=== PATIENT | female | born 1990 | race Caucasian/White ===

== ENCOUNTER 2017-06-05 00:33 | Outpatient (CLI) | payer OTHER ==
[~2017-06-05] VITALS: Ht 157.5 cm; Wt 64.0 kg
[2017-06-05 01:00] VITALS: BP 118/60
== END 2017-06-05 02:00 | disposition home or self-care (01) ==
LOC: LDOP 00:33
PROVIDERS: ATTEND Obstetrics & Gynecology
DX: O46.93 Antepartum hemorrhage, unspecified, third trimester (principal); Z3A.30 30 weeks gestation of pregnancy
CPT/HCPCS: 59025; 81003; 87086; 99201; G0463

== ENCOUNTER 2017-08-05 06:57 | Inpatient (IN) | payer OTHER ==
[~2017-08-05] VITALS: Ht 157.5 cm; Wt 74.0 kg
[2017-08-05] MEDS ORDERED: OXYTOCIN 30U/ 0.9% NaCL 500ML 500 ML IV ONE (07:20)
[2017-08-05] MEDS ORDERED: PLEASE ENTER ALLERGIES MC SCH ×2 (07:30)
[2017-08-05] MEDS ORDERED: PLEASE ENTER HEIGHT AND WEIGHT MC SCH (07:30)
[2017-08-05] MEDS ORDERED: LIDOCAINE 1%, 20ML ONE (07:38)
[2017-08-05] MEDS ORDERED: OXYTOCIN 30U/ 0.9% NaCL 500ML 500 ML ONE ×2 (07:39→10:47)
[2017-08-05] MEDS ORDERED: MISOPROSTOL 200 MCG TABLET ONE (07:39)
[2017-08-05 07:56] LABS: HEMATOCRIT 35.7 % (34.6-47.8); HEMOGLOBIN 11.8 g/dL (11.7-16.4); WHITE BLOOD COUNT 9.9 x10^3/uL (3.4-10)
[2017-08-05 07:59] VITALS: BP 140/71
[2017-08-05] MEDS ORDERED: NEWBORN KIT ONE (08:10)
[2017-08-05] MEDS ORDERED: ONDANSETRON 2MG/ML, 2ML IVPush PRN (08:30)
[2017-08-05] MEDS ORDERED: FENTANYL PF 100 MCG/2ML IV PRN (08:30)
[2017-08-05] MEDS ORDERED: SODIUM CHLORIDE FLUSH 10ML SYR IVF PRN (08:30)
[2017-08-05] MEDS ORDERED: D5%-LACTATED RINGERS 1,000 ML IV SCH (08:30)
[2017-08-05] MEDS ORDERED: LACTATED RINGERS 1,000 ML IV SCH (08:30)
[2017-08-05] MEDS ORDERED: TERBUTALINE 1 MG/ML, 1ML IVPush PRN (08:30)
[2017-08-05] MEDS ORDERED: PREN-3 PO (09:10)
[2017-08-05] MEDS ORDERED: CARBOPROST TROMETHAMINE 250 MCG/ML, 1ML IM ONE ×2 (10:00→17:00)
[2017-08-05] MEDS ORDERED: MISOPROSTOL 200 MCG TABLET PR ONE (10:00)
[2017-08-05] MEDS: OXYTOCIN 30U/ 0.9% NaCL 500ML 500 ML IV SCH ×11 (10:23→23:27)
[2017-08-05] MEDS ORDERED: METHYLERGONOVINE 0.2 MG/ML IM ONE (10:37)
[2017-08-05] MEDS ORDERED: FENTANYL PF 100 MCG/2ML ONE ×2 (10:39→10:56)
[2017-08-05] MEDS: FENTANYL PF 100 MCG/2ML IVPush PRN ×2 (10:41→10:58)
[2017-08-05] MEDS ORDERED: DIPHENOXYLATE/ATROPINE TABLET PO PRN (12:00)
[2017-08-05] MEDS ORDERED: OXYcodone IR 5MG TABLET PO PRN (12:00)
[2017-08-05] MEDS: PRENATAL VIT/IRON/FA 1 EACH TABLET PO SCH (12:00)
[2017-08-05] MEDS ORDERED: METHYLERGONOVINE 0.2 MG/ML IM PRN (12:00)
[2017-08-05] MEDS ORDERED: DOCUSATE 100 MG CAPSULE PO PRN (12:00)
[2017-08-05] MEDS ORDERED: OXYcodone/APAP 5/325MG TABLET PO PRN (12:00)
[2017-08-05] MEDS ORDERED: MISOPROSTOL 200 MCG TABLET PR PRN (12:00)
[2017-08-05] MEDS ORDERED: ONDANSETRON 2MG/ML, 2ML IV PRN (12:00)
[2017-08-05] MEDS ORDERED: IBUPROFEN 600 MG TABLET ONE (12:01)
[2017-08-05 12:45] LABS: HEMATOCRIT 31.5 % (34.6-47.8); HEMOGLOBIN 10.5 g/dL (11.7-16.4); WHITE BLOOD COUNT 17.2 x10^3/uL (3.4-10)
[2017-08-05] MEDS: IBUPROFEN 600 MG TABLET PO PRN ×2 (12:47→19:20)
[2017-08-05 13:12] LABS: HIV 1&2 ANTIBODY SCREEN Nonreactive (Nonreactive); HIV-1 p24 ANTIGEN Nonreactive (Nonreactive)
[2017-08-05 13:30] VITALS: BP 110/71
[2017-08-05 16:07] VITALS: BP 125/73
[2017-08-05 16:42] LABS: HEMATOCRIT 29.8 % (34.6-47.8); HEMOGLOBIN 9.9 g/dL (11.7-16.4); WHITE BLOOD COUNT 17.5 x10^3/uL (3.4-10)
[2017-08-05] MEDS ORDERED: MISOPROSTOL 100 MCG TABLET ONE (17:00)
[2017-08-05] MEDS: FERROUS SULFATE 325 MG TABLET PO SCH (17:01)
[2017-08-05] MEDS: ACETAMINOPHEN 325 MG TABLET PO PRN ×2 (17:01→22:45)
[2017-08-05 19:21] VITALS: BP 110/62
[2017-08-06 00:10] VITALS: BP 109/64
[2017-08-06] MEDS: OXYTOCIN 30U/ 0.9% NaCL 500ML 500 ML IV SCH ×6 (00:53→07:49)
[2017-08-06 06:01] LABS: HEMOGLOBIN 7.4 g/dL (11.7-16.4); WHITE BLOOD COUNT 9.7 x10^3/uL (3.4-10)
[2017-08-06 06:13] LABS: HEMATOCRIT 22.1 % (34.6-47.8)
[2017-08-06 08:54] VITALS: BP 109/71
[2017-08-06] MEDS: PRENATAL VIT/IRON/FA 1 EACH TABLET PO SCH (09:00)
[2017-08-06] MEDS: FERROUS SULFATE 325 MG TABLET PO SCH (09:03)
[2017-08-06 10:08] LABS: HEMATOCRIT 24.4 % (34.6-47.8)
[2017-08-06] MEDS ORDERED: FERR325T23 PO (11:31)
[2017-08-06] MEDS: ACETAMINOPHEN 325 MG TABLET PO PRN (14:06)
== END 2017-08-06 19:00 | disposition home or self-care (01) | DRG 774 ==
LOC: LDOP 06:57 → L&D 07:32 → LDIP 10:22 → 2NW 13:39
PROVIDERS: ADMIT Obstetrics & Gynecology; ATTEND Obstetrics & Gynecology
PROC: 10E0XZZ Delivery of Products of Conception, External Approach (ICD-10-PCS; principal; 2017-08-06)
DX: O43.193 Other malformation of placenta, third trimester (principal); O72.1 Other immediate postpartum hemorrhage; Z37.0 Single live birth; O77.0 Labor and delivery complicated by meconium in amniotic fluid; Z3A.38 38 weeks gestation of pregnancy; O90.81 Anemia of the puerperium; D64.9 Anemia, unspecified
CPT/HCPCS: 36415; 85014; 85018; 85025; 86703; 86762; 86850; 86900; 87340; 87899; J3010; G0435; J2210; J2590; J7120